=== PATIENT | female | born 1950 | race Caucasian/White ===

== ENCOUNTER → 2016-04-05 | Outpatient (CLI) | payer BC ==
--- NOTE | 2016-04-06 08:09 | RAD ---
EXAM DESCRIPTION: Right foot, three views. CLINICAL HISTORY: PLANTAR FASCITIS. Foot pain. FINDINGS/IMPRESSION: Moderate size well corticated plantar calcaneal spur. Large enthesophyte distal dorsal Achilles tendon insertion. 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 No fracture or focal osteochondral lesion Dorsal osteophytes navicular cuneiform. Tibiotalar marginal osteophytes Electronically signed by: Micah Colindres MD 04/06/2016 08:08
== END | disposition home or self-care (01) ==
LOC: RAD 15:25
PROVIDERS: ATTEND Nurse Practitioner Family
DX: M72.2 Plantar fascial fibromatosis (principal)